=== PATIENT | male | born 1960 | race Caucasian/White ===

== ENCOUNTER → 2021-11-04 | Outpatient (CLI) | payer OTHER ==
[~2021-11-04] MED LIST: IOHEXOL 350 MG/ML 100 ML VIAL. IV ONE
--- NOTE | 2021-11-04 09:15 | RAD ---
CTA CHEST History: Aortic aneurysm Technique: CT angiogram chest was performed with intravenous contrast. Coronal and sagittal reconstru ctions were performed. 3-D reconstructions were performed. Exposure: One or more of the following individualized dose reduction techniques were utilized for thi s examination: 1. Automated exposure control 2. Adjustment of the mA and/or kV according to patient size 3. Use of iterative reconstruction technique. Comparison: None Findings: Chest: No pathologic lymphadenopathy. No pulmonary embolism. Minimal atheromatous plaque within the a ortic arch. No evidence of ascending aortic aneurysm. The ascending aorta measures 3.6 cm at the aort ic root. No aortic dissection. No consolidation or pleural effusion. No pneumothorax. Scattered linea r atelectasis. 7 x 5 mm left upper lobe peribronchovascular nodule (series 3 image 45). 3 mm left lower lobe pulmona ry nodule (image 73). 4 mm right middle lobe pulmonary nodule (image 78). Upper abdomen: Left hepatic lobe cyst measures 3.0 cm. Tiny right hepatic lobe hypodensity, too small to further characterize. Bones: No pathologic osseous lesions. Impression: 1. No evidence of ascending aortic aneurysm. 2. Pulmonary nodules largest within the left upper lobe. Recommend 6-12 month follow-up chest CT wit hout contrast. Electronically signed by: Ovidio Campos DO (11/04/2021 9:12 AM) [facility]
== END ==
LOC: CT 08:05
PROVIDERS: ATTEND Family Medicine
DX: I71.2 Thoracic aortic aneurysm, without rupture (principal); R91.8 Other nonspecific abnormal finding of lung field; I70.0 Atherosclerosis of aorta; K76.89 Other specified diseases of liver
CPT/HCPCS: 71275; Q9967